=== PATIENT | male | born 1970 | race Caucasian/White ===

== ENCOUNTER 2018-07-18 21:26 | Emergency (ER) | payer OTHER ==
[2018-07-18 22:36] VITALS: RESP 16
[2018-07-18] MEDS ORDERED: Pantoprazole 40 mg EC Tab PO STA (23:20)
[2018-07-18] MEDS ORDERED: Pantoprazole 40 mg EC Tab PO ONE (23:35)
[2018-07-18 23:36] LABS: HEMOGLOBIN 15.2 g/dL (12.0-18.0); MEAN CELL VOLUME 90.8 fl (80.0-94.0); MEAN CORPUSCULAR HEMOGLOBIN 30.6 pg (27.0-31.0); MEAN CORPUSCULAR HGB CONC 33.7 g/dL (33.0-37.0); RBC 4.97 Mil/uL (4.40-5.90); RED CELL DISTRIBUTION WIDTH 13.4 % (11.5-14.5); WHITE BLOOD COUNT 9.8 K/uL (4.8-10.8)
--- NOTE | 2018-07-18 23:45 | ED PDOC ---
HPI: Abdomen Time Seen by Provider: 07/18/18 22:57 Chief Complaint (Nursing): Abdominal Pain Chief Complaint (Provider): Abdominal Pain History Per: Patient History/Exam Limitations: no limitations Onset/Duration Of Symptoms: Other (x1 week) Current Symptoms Are (Timing): Still Present Location Of Pain/Discomfort: Epigastric Additional Complaint(s): 47 year old male, with a history of ulcer in the past, presents with occasional epigastric pain for 1 week. Patient states pain feels like his ulcer because he has been eating badly and snacking late at night. He says the stools have been dark over the past week and is concerned about bleeding. He reports that he vomited once and it was food colored. Denies any pain right now. PMD: none provided Past Medical History Reviewed: Historical Data, Nursing Documentation, Vital Signs Vital Signs: Last Vital Signs Temp 98.3 F 07/18/18 22:33 Pulse 76 07/18/18 22:33 Resp 16 07/18/18 22:33 BP 124/80 07/18/18 22:33 Pulse Ox 97 07/18/18 22:33 - Medical History PMH: Back Problems Other PMH: Peptic Ulcer Disease - Surgical History Surgical History: No Surg Hx - Family History Family History: States: Unknown Family Hx - Immunization History Hx Tetanus Toxoid Vaccination: No Hx Influenza Vaccination: No Hx Pneumococcal Vaccination: No - Home Medications Home Medications: Ambulatory Orders Medication Instructions Recorded Cyclobenzaprine [Cyclobenzaprine 10 mg PO TID #20 tab 11/16/15 HCl] Ibuprofen [Motrin] 600 mg PO Q6 #20 tab 11/16/15 Oxycodone HCl/Acetaminophen 1 tab PO Q4 #4 tab 11/16/15 [Percocet 325 mg-5 mg] Famotidine [Pepcid] 20 mg PO BID #20 tab 07/19/18 RX: Omeprazole 20 mg PO DAILY #30 tablet. 07/19/18 - Allergies Allergies/Adverse Reactions: Allergies Allergy/AdvReac Type Severity Reaction Status Date / Time No Known Allergies Allergy Verified 11/16/15 12:38 Review of Systems ROS Statement: Except As Marked, All Systems Reviewed And Found Negative Gastrointestinal: Positive for: Vomiting, Abdominal Pain (epigastric pain), Othe r (Dark colored stools) Physical Exam - Reviewed Nursing Documentation Reviewed: Yes Vital Signs Reviewed: Yes - Physical Exam Appears: Positive for: Non-toxic, No Acute Distress Head Exam: Positive for: ATRAUMATIC, NORMOCEPHALIC Skin: Positive for: Normal Color, Warm, Dry Eye Exam: Positive for: Normal appearance Neck: Positive for: Normal, Painless ROM Cardiovascular/Chest: Positive for: Regular Rate, Rhythm Respiratory: Positive for: Normal Breath Sounds. Negative for: Wheezing, Respiratory Distress Gastrointestinal/Abdominal: Positive for: Normal Exam, Soft. Negative for: Tenderness Rectal: Positive for: Other (Light colored brown stool) Extremity: Positive for: Normal ROM Neurologic/Psych: Positive for: Alert, Oriented. Negative for: Motor/Sensory Deficits - Laboratory Results Result Diagrams: 07/18/18 23:30 07/18/18 23:30 - ECG O2 Sat by Pulse Oximetry: 97 (RA) Pulse Ox Interpretation: Normal Medical Decision Making Medical Decision Making: A/P: 47 y/o male with history of peptic ulcer disease presenting with occasional burning pain and dark stools. Patient is very well appearing with normal exam and nontender abdomen. Likely, patient has an exacerbation of ulcer disease vs gastritis vs GERD. Less likely pancreatitis or any other intra abdominal pathology. Initial Plan: --BMP --Lipase stat --Liver profile stat --CBC --Protonix 40mg PO --Occult blood, stool stat 145 --Workup negative --Patient feeling well, requesting pepcid --Advised followup with GI for eval and possibly endoscopy --Very well appearing, tolerating PO upon discharge Scribe Attestation: Documented by Maged Gray acting as a scribe for Jayden Cummings MD. Provider Scribe Attestation: All medical record entries made by the Scribe were at my direction and personally dictated by me. I have reviewed the chart and agree that the record accurately reflects my personal performance of the history, physical exam, medical decision making, and the department course for this patient. I have also personally directed, reviewed, and agree with the discharge instructions and disposition. Disposition - Clinical Impression Clinical Impression: Peptic ulcer disease - Disposition Referrals: Mark Saldana MD, PhD [Staff Provider] - Disposition: Routine/Home Disposition Time: 01:45 Condition: STABLE Prescriptions: Famotidine [Pepcid] 20 mg PO BID #20 tab RX: Omeprazole 20 mg PO DAILY #30 tablet. Instructions: Peptic Ulcers Forms: [facility] (Jordanian)
[2018-07-18 23:48] LABS: ALB/GLOB RATIO 1.1 (1.0-2.1); ALBUMIN 4.1 g/dL (3.5-5.0); ALT/SGPT 32 U/L (21-72); AST/SGOT 29 U/L (17-59); BILIRUBIN,DIRECT 0.2 mg/ml (0.0-0.4); BLOOD UREA NITROGEN 17 mg/dl (9-20); CALCIUM 8.8 mg/dL (8.4-10.2); GFR NON-AFRICAN AMERICAN > 60; LIPASE 42 U/L (23-300)
[2018-07-19 01:53] VITALS: BP 133/65; PULSE 75; TEMP 98.1
[2018-07-19 02:54] VITALS: O2SAT 97
== END 2018-07-19 01:53 | disposition home or self-care (01) ==
LOC: H.ER 21:26
DX: K27.9 Peptic ulcer, site unspecified, unspecified as acute or chronic, without hemorrhage or perforation (principal)

== ENCOUNTER 2018-08-18 15:32 | Emergency (ER) | payer OTHER ==
[2018-08-18 15:40] VITALS: RESP 18
--- NOTE | 2018-08-18 17:34 | ED PDOC ---
HPI: Eye Injury/Pain Time Seen by Provider: 08/18/18 16:17 Chief Complaint (Nursing): Eye Problem Chief Complaint (Provider): left eye injury History Per: Patient Additional Complaint(s): 48-year-old male presents with pain to left eye. Patient states that a car door hit the corner of his eye about 2 hours prior to arrival. Patient did not sustain LOC. Patient has mild blurry vision and redness to left eye. He does not wear contacts or glasses. Patient denies foreign body sensation to left eye. He states tetanus is not up to date. Patient has history of orbital fracture to left eye and had surgery over 10 years ago to repair the fracture. He states he has metal plates to left periorbital region and is concerned about re-injury. PMD: none Past Medical History Reviewed: Historical Data, Nursing Documentation, Vital Signs Vital Signs: Last Vital Signs Temp 98.4 F 08/18/18 15:38 Pulse 74 08/18/18 15:38 Resp 18 08/18/18 15:38 BP Pulse Ox 96 08/18/18 15:38 - Medical History PMH: Back Problems - Surgical History Other surgeries: Right arm fracture repair, right femur repair, left eye surgery - Family History Family History: States: No Known Family Hx - Living Arrangements Living Arrangements: With Family - Social History Current smoker - smoking cessation education provided: No Alcohol: None Drugs: Opiates (h/o abuse, clean for several years) - Immunization History Hx Tetanus Toxoid Vaccination: No Hx Influenza Vaccination: No Hx Pneumococcal Vaccination: No - Home Medications Home Medications: Ambulatory Orders Medication Instructions Recorded Cyclobenzaprine [Cyclobenzaprine 10 mg PO TID #20 tab 11/16/15 HCl] Ibuprofen [Motrin] 600 mg PO Q6 #20 tab 11/16/15 Oxycodone HCl/Acetaminophen 1 tab PO Q4 #4 tab 11/16/15 [Percocet 325 mg-5 mg] Famotidine [Pepcid] 20 mg PO BID #20 tab 07/19/18 Omeprazole 20 mg PO DAILY #30 tablet. 07/19/18 Tobramycin [Tobrex] 5 ml TOP QID #1 bottle 08/18/18 - Allergies Allergies/Adverse Reactions: Allergies Allergy/AdvReac Type Severity Reaction Status Date / Time No Known Allergies Allergy Verified 11/16/15 12:38 Review of Systems ROS Statement: Except As Marked, All Systems Reviewed And Found Negative Eyes: Positive for: Other (trauma to left eye region) Neurological: Positive for: Other (denies headache or LOC) Physical Exam - Reviewed Nursing Documentation Reviewed: Yes Vital Signs Reviewed: Yes - Physical Exam Appears: Positive for: Well, Non-toxic, No Acute Distress Skin: Positive for: Normal Color. Negative for: Rash Eye Exam: Positive for: Other (Periorbital ecchymosis noted to left eye, diffuse subconjunctival hemorrhage also noted, no gross foreign body, no hyphema, no globe rupture, superficial abrasion noted to lateral aspect of left eye with no active bleeding, mild tenderness to left periorbital region with no palpable bony deformity) Cardiovascular/Chest: Positive for: Regular Rate, Rhythm Respiratory: Positive for: Normal Breath Sounds. Negative for: Respiratory Distress Extremity: Positive for: Normal ROM Neurologic/Psych: Positive for: Alert, medical billing instructor II-XII (grossly intact), Oriented, Gait (steady). Negative for: Motor/Sensory Deficits, Aphasia, Facial Droop - ECG O2 Sat by Pulse Oximetry: 96 Pulse Ox Interpretation: Normal - Other Rad CT facial bones X-Ray: Read By Radiologist X-Ray Interpretation: see below Medical Decision Making Medical Decision Makin48 year old with traumatic injury to left eye Plan: CT facial bones PO tylenol Tetanus booster CT facial bones: IMPRESSION: 1. No acute orbital fracture. Moderate left in fraorbital soft tissue hematoma. 2. Status post open reduction and internal fixation of mildly displaced left anterior maxillary wall fracture. 3. Old fracture in the left zygoma. 4. Expansile osteolytic soft tissue density smoothly marginated lesion in the left maxilla in the superior wall also involving the inferior wall of the left orbit not completely characterized on this noncontrast CT examination. A dedicated MRI of the maxillary sinuses without and with intravenous contrast on a nonemergent basis is recommended for definitive evaluation. Patient is aware of CT findings. Copy of report provided to patient. He was instructed to follow-up with [facility] department. Patient instructed to apply ice to affected area and continue with Tylenol for pain, prescription for tobramycin eyedrops provided. Disposition - Clinical Impression Clinical Impression: Periorbital contusion of left eye, Subconjunctival hemorrhage - Patient ED Disposition Is Patient to be Admitted: No Counseled Patient/Family Regarding: Studies Performed, Rx Given - Disposition Referrals: Daryl Almodovar MD [Staff Provider] - Disposition: Routine/Home Disposition Time: 19:15 Condition: STABLE Additional Instructions: apply ice to affected area to reduce bruising and swelling. Use eye drops as directed. Tylenol for pain as needed. Follow-up with eye doctor or make an appointment at [facility] postdoctoral research fellow department: [place] [address] or [phone] Prescriptions: Tobramycin [Tobrex] 5 ml TOP QID #1 bottle Instructions: Eye Contusion (DC), Subconjunctival Hemorrhage Forms: [facility] ([place]ican)
--- NOTE | 2018-08-18 19:00 | CT ---
Date of service: 08/18/2018 PROCEDURE: CT ORBITS WITHOUT CONTRAST. HISTORY: trauma to left eye COMPARISON: None available. TECHNIQUE: Axial CT images of the orbits were obtained. Coronal and sagittal reformats were generated. Radiation dose: Total exam DLP = 769.15 mGy-cm. This CT exam was performed using one or more of the following dose reduction techniques: Automated exposure control, adjustment of the mA and/or kV according to patient size, and/or use of iterative reconstruction technique. FINDINGS: RIGHT ORBIT: RIGHT BONY ORBIT: No acute orbital fracture. RIGHT INTRAORBITAL STRUCTURES: Globe: Normal. Extraocular muscles: Normal. Post septal space: Normal. Optic Nerve: Normal. Lacrimal Apparatus: Normal. RIGHT PRESEPTAL SOFT TISSUES: Normal. LEFT ORBIT: LEFT BONY ORBIT: No acute orbital fracture. LEFT INTRAORBITAL STRUCTURES: Globe: Normal. No evidence of intra orbital hemorrhage, lens dislocation or emphysema. Extraocular muscles: Normal. Post septal space: Normal Optic Nerve: Normal. . Lacrimal Apparatus: Normal. LEFT PRESEPTAL SOFT TISSUES: There is moderate infraorbital soft tissue hematoma. OTHER: Status post open reduction and internal fixation of mildly displaced anterior maxillary wall fracture. There also an old mildly displaced fracture in the left zygomatic arch. There is also an old fracture in the left posterior lateral maxillary wall. There is a in 2.0 by 1.2 cm expansile osteolytic lesion in the left superior maxilla also involving the inferior wall of the left orbit. The lesion has smooth margins and measures soft tissue density. IMPRESSION: 1. No acute orbital fracture. Moderate left infraorbital soft tissue hematoma. 2. Status post open reduction and internal fixation of mildly displaced left anterior maxillary wall fracture. 3. Old fracture in the left zygoma. 4. Expansile osteolytic soft tissue density smoothly marginated lesion in the left maxilla in the superior wall also involving the inferior wall of the left orbit not completely characterized on this noncontrast CT examination. A dedicated MRI of the maxillary sinuses without and with intravenous contrast on a nonemergent basis is recommended for definitive evaluation.
[2018-08-18] MEDS ORDERED: Tdap Vaccine 0.5 ml Vial (10-64 yrs) IM ONE ×2 (19:22→20:04)
[2018-08-18 20:29] VITALS: BP 135/82; PULSE 70; TEMP 98.2; O2SAT 99
== END 2018-08-18 20:29 | disposition home or self-care (01) ==
LOC: H.ER 15:32
DX: S05.12XA Contusion of eyeball and orbital tissues, left eye, initial encounter (principal); H11.32 Conjunctival hemorrhage, left eye; W22.8XXA Striking against or struck by other objects, initial encounter; Y92.89 Other specified places as the place of occurrence of the external cause